=== PATIENT | female | born 2000 | race Hispanic/Latino ===

== ENCOUNTER 2021-09-16 16:31 | Emergency (ER) | payer OTHER, SELFPAY ==
[2021-09-16 16:34] VITALS: BP 116/83; PULSE 78; RESP 12; TEMP 36.6; O2SAT 99
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
--- NOTE | 2021-09-16 19:48 | PC.NURSE ---
Poison control called to check on pt status. Informe them that pt pain is less and no increased/or new symptoms. They report that poison control will be closing the call from their end at this time.
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
[2021-09-16 20:40] VITALS: BP 114/69; PULSE 72; RESP 18; TEMP 36.6; O2SAT 100
== END 2021-09-16 20:40 | disposition home or self-care (01) ==
PROVIDERS: Emergency Provider Emergency Medicine
DX: T24.401A Corrosion of unspecified degree of unspecified site of right lower limb, except ankle and foot, initial encounter (principal); Y99.0 Civilian activity done for income or pay
CPT/HCPCS: 99281